=== PATIENT | male | born 2000 | race Caucasian/White ===

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

== ENCOUNTER 2022-09-03 15:59 | Emergency (ER) | payer BC, SELFPAY ==
[~2022-09-03] VITALS: Ht 177.8 cm; Wt 66.8 kg
[~2022-09-03 15:59] MED LIST changes: +ALEV220T22 PO
[2022-09-03] MEDS ORDERED: LIDOCAINE 1% MDV 20ML VIAL SC ONE (16:55)
[2022-09-03] MEDS ORDERED: BOOSTRIX/ADACEL VACCINE (DIPHTH/PERTUSS/ACELL/TETANUS) 0.5ML SYR IM.IMMUN ONE (16:55)
[2022-09-03] MEDS ORDERED: CEPH500C PO (17:54)
[2022-09-03 17:57] VITALS: BP 131/73
[2022-09-07] MEDS ORDERED: IBUP-1114 PO (11:54)
== END 2022-09-03 18:11 | disposition home or self-care (01) ==
LOC: M ED 15:59
DX: S61.216A Laceration without foreign body of right little finger without damage to nail, initial encounter (principal); S66.106A Unspecified injury of flexor muscle, fascia and tendon of right little finger at wrist and hand level, initial encounter; W26.0XXA Contact with knife, initial encounter; F17.200 Nicotine dependence, unspecified, uncomplicated; Y92.9 Unspecified place or not applicable; Y93.9 Activity, unspecified; Y99.9 Unspecified external cause status

== ENCOUNTER → 2022-09-06 | Outpatient (CLI) | payer SELFPAY ==
[~2022-09-06] MED LIST changes: +CEPH500C PO; +IBUP-1114 PO
== END ==
LOC: M SOG 13:29
PROVIDERS: ATTEND Orthopaedic Surgery Hand Surgery
DX: M79.644 Pain in right finger(s) (principal)

== ENCOUNTER 2022-09-09 06:59 | Day surgery (SDC) | payer BC, SELFPAY ==
[~2022-09-09] VITALS: Ht 180.3 cm; Wt 69.8 kg
[2022-09-09] MEDS ORDERED: SEVOFLURANE INHAL SOLN 250 ML BTL As Ordered ONE (07:04)
[2022-09-09] MEDS ORDERED: propofoL 200 MG/20 ML VIAL As Ordered ONE ×2 (07:09→09:21)
[2022-09-09] MEDS ORDERED: LIDOCAINE 2% 100MG/5ML SDV (FOR ANES.) As Ordered ONE (07:10)
[2022-09-09] MEDS ORDERED: ONDANSETRON 4MG 2ML VIAL As Ordered ONE (07:11)
[2022-09-09] MEDS ORDERED: MIDAZOLAM INJ 2MG/2ML VIAL (J2250 PER 1MG) As Ordered ONE (07:11)
[2022-09-09] MEDS ORDERED: fentaNYL 250 MCG/5 ML INJECTION As Ordered ONE (07:11)
[2022-09-09] MEDS ORDERED: dexameTHASONE 4 MG/ML 1ML VIAL (J1100 PER 1MG) As Ordered ONE (07:11)
[2022-09-09] MEDS ORDERED: BUPIVACAINE HCL 0.25% 10ML VIAL As Ordered ONE (07:25)
[2022-09-09] MEDS ORDERED: LIDOCAINE 1% MDV 20ML VIAL As Ordered ONE (07:25)
[2022-09-09] MEDS ORDERED: PERC5TAB12 PO (07:29)
[2022-09-09] MEDS ORDERED: LR 1,000 ML IV SCH ×2 (07:30→09:30)
[2022-09-09] MEDS ORDERED: ceFAZolin SOD 2 GM in IV 1 EA IV ONE (07:30)
[2022-09-09] MEDS ORDERED: BACITRACIN OINTMENT 30GM TUBE As Ordered ONE (08:28)
[2022-09-09] MEDS ORDERED: KETOROLAC 60MG 2ML VIAL As Ordered ONE (09:18)
[2022-09-09] MEDS ORDERED: HYDROMORPHONE HCL 0.5 MG/ 0.5 ML SYRINGE (J1170 PER 1) IV PRN (09:30)
[2022-09-09] MEDS ORDERED: fentaNYL 100 MCG/2 ML INJECTION IV PRN (09:30)
[2022-09-09] MEDS ORDERED: oxyCODONE 5MG TAB PO PRN (09:30)
[2022-09-09] MEDS ORDERED: ONDANSETRON 4MG 2ML VIAL IV PRN (09:30)
[2022-09-09 10:27] VITALS: BP 140/70
[2022-09-09] MEDS ORDERED: ACETAMINOPHEN 1000MG 100ML IV BTL (OFIRMEV) (J0131 PER 10MG) As Ordered ONE (13:27)
== END 2022-09-09 10:33 | disposition home or self-care (01) ==
LOC: M SDC 06:59
PROVIDERS: ATTEND Orthopaedic Surgery Hand Surgery
DX: S66.126A Laceration of flexor muscle, fascia and tendon of right little finger at wrist and hand level, initial encounter (principal); W26.0XXA Contact with knife, initial encounter; Y93.89 Activity, other specified; Y92.9 Unspecified place or not applicable; F17.210 Nicotine dependence, cigarettes, uncomplicated; F10.10 Alcohol abuse, uncomplicated; F32.A Depression, unspecified; F12.10 Cannabis abuse, uncomplicated; Z79.899 Other long term (current) drug therapy
CPT/HCPCS: 26356; 87428; J0131; J0690; J1100; J1885; J2250; J2405; J3010

== ENCOUNTER 2022-09-25 19:33 | Inpatient (IN) | payer SELFPAY ==
[~2022-09-25] VITALS: Ht 177.8 cm; Wt 66.8 kg
[~2022-09-25 19:33] MED LIST changes: +PERC5TAB12 PO
[2022-09-25 20:38] LABS: HEMATOCRIT 46.4 % (42.0-52.0); HEMOGLOBIN 15.9 g/dl (13.5-17.5); MEAN CORPUSCULAR HEMOGLOBIN 31.9 pg (27.0-33.0); MEAN CORPUSCULAR HGB CONC 34.3 g/dl (32.0-36.5); PLATELET COUNT, AUTOMATED 282 10^3/uL (150-450); RED BLOOD COUNT 4.99 10^6/uL (4.30-6.10); WHITE BLOOD COUNT 11.7 10^3/uL (4.0-10.0)
[2022-09-25 21:03] LABS: AMPHETAMINES LEVEL URINE NEGATIVE (NEGATIVE); BARBITURATES URINE NEGATIVE (NEGATIVE); BENZODIAZEPINES URINE NEGATIVE (NEGATIVE); CANNABINOIDS URINE POSITIVE (NEGATIVE); COCAINE METABOLITE URINE NEGATIVE (NEGATIVE); METHADONE URINE NEGATIVE (NEGATIVE); OPIATES URINE NEGATIVE (NEGATIVE); PHENCYCLIDINE URINE NEGATIVE (NEGATIVE)
[2022-09-25 21:11] LABS: RSV AMPLIFICATION NEGATIVE (NEGATIVE)
[2022-09-25 21:30] LABS: ACETAMINOPHEN LEVEL < 2.0 UG/ML (10.0-20.0); ALBUMIN 4.7 G/DL (3.2-5.2); ALT/SGPT 23 U/L (7.0-40); BILIRUBIN,DIRECT < 0.1 MG/DL (<0.4); BILIRUBIN,TOTAL 0.2 MG/DL (0.3-1.2); BLOOD UREA NITROGEN 10 MG/DL (9-23); CALCIUM LEVEL 8.6 MG/DL (8.5-10.1); CARBON DIOXIDE LEVEL 25 MMOL/L (20-31); CHLORIDE LEVEL 109 MMOL/L (98-107); CREATININE FOR GFR 0.61 MG/DL (0.70-1.30); ETHYL ALCOHOL (ETHANOL) 0.186 % (0.000-0.010); GLUCOSE, FASTING 94 MG/DL (60-100); POTASSIUM SERUM 4.2 MMOL/L (3.5-5.1); SODIUM LEVEL 145 MMOL/L (136-145); THYROID STIMULATING HORMONE 1.469 uIU/ML (0.48-4.17); TOTAL PROTEIN 7.7 G/DL (5.7-8.2)
[2022-09-25 21:36] LABS: SALICYLATE LEVEL < 3.0 MG/DL (<30)
[2022-09-26] MEDS ORDERED: NICOTINE 21MG/24HR 1 EA TRANSDERMAL TD ONE ×2 (02:55→22:15)
[2022-09-26] MEDS ORDERED: ACETAMINOPHEN 325 MG TAB PO ONE (02:55)
[2022-09-26] MEDS ORDERED: FOLI1TAB11 PO (15:54)
[2022-09-26] MEDS ORDERED: PATIENT COMMENT (15:54)
[2022-09-26] MEDS ORDERED: THIA100T7 PO (15:54)
[2022-09-26] MEDS ORDERED: VITMTA PO (15:54)
[2022-09-26] MEDS ORDERED: NICO1DIS11 TD (15:54)
[2022-09-26] MEDS ORDERED: TRAZ1TAB10 PO (15:54)
[2022-09-26] MEDS ORDERED: ACAM0.05 PO (15:54)
[2022-09-26] MEDS ORDERED: PANT-23 PO (15:54)
[2022-09-26] MEDS ORDERED: HOME MED LIST COMPLETE! XX SCH (15:55)
[2022-09-26] MEDS ORDERED: traZODone 25MG PER 1/2 TABLET PO PRN (16:35)
[2022-09-27] MEDS ORDERED: ACETAMINOPHEN TAB 650MG DOSE (2X325MG) PO ONE (08:30)
[2022-09-27] MEDS ORDERED: NICOTINE 21MG/24HR 1 EA TRANSDERMAL TD SCH (09:00)
[2022-09-27] MEDS ORDERED: MULTIVITAMINS/MINERALS THERAP 1 TAB PO SCH (09:00)
[2022-09-27] MEDS ORDERED: THIAMINE 100 MG TAB PO SCH ×2 (09:00→21:00)
[2022-09-27] MEDS ORDERED: FOLIC ACID 1MG TAB PO SCH (09:00)
[2022-09-27] MEDS ORDERED: PANTOPRAZOLE 40MG TAB (PROTONIX) PO SCH (09:00)
[2022-09-27] MEDS ORDERED: MAALOX 30 ML SUSP *UDC PO PRN (12:55)
[2022-09-27] MEDS ORDERED: IBUPROFEN 400MG TAB PO PRN (12:55)
[2022-09-27] MEDS ORDERED: MOM 30ML SUSPENSION UDC PO PRN (12:55)
[2022-09-27] MEDS ORDERED: IBUPROFEN 400MG TAB PO ONE (13:05)
[2022-09-27] MEDS: LORazepam 2 MG TAB PO PRN ×2 (15:29→20:45)
[2022-09-27] MEDS: ACAMPROSATE CALCIUM 333 MG TABLET (CAMPRAL) PO SCH ×2 (16:26→20:45)
[2022-09-27 17:26] VITALS: BP 136/75
[2022-09-27] MEDS: diphenhydrAMINE 25MG CAP PO PRN (18:01)
[2022-09-27 20:43] VITALS: BP 146/96
[2022-09-27] MEDS: traZODone 50 MG TAB PO PRN (21:10)
[2022-09-27 22:44] VITALS: BP 141/81
[2022-09-28] VITALS (8 sets, daily range): BP systolic 113–142; BP diastolic 57–80
[2022-09-28] MEDS: THIAMINE 100 MG TAB PO SCH (07:26)
[2022-09-28] MEDS: PANTOPRAZOLE 40MG TAB (PROTONIX) PO SCH (07:26)
[2022-09-28] MEDS: MULTIVITAMINS/MINERALS THERAP 1 TAB PO SCH (07:26)
[2022-09-28] MEDS: NICOTINE 21MG/24HR 1 EA TRANSDERMAL TD SCH (07:26)
[2022-09-28] MEDS: FOLIC ACID 1MG TAB PO SCH (07:26)
[2022-09-28] MEDS: ACAMPROSATE CALCIUM 333 MG TABLET (CAMPRAL) PO SCH ×3 (07:29→20:18)
[2022-09-28] MEDS ORDERED: ONDANSETRON 4MG TAB PO ONE (07:55)
[2022-09-28] MEDS ORDERED: MULTIVITAMINS/MINERALS THERAP 1 TAB PO SCH (09:00)
[2022-09-28] MEDS ORDERED: NICOTINE 21MG/24HR 1 EA TRANSDERMAL TD SCH (09:00)
[2022-09-28] MEDS ORDERED: FOLIC ACID 1MG TAB PO SCH (09:00)
[2022-09-28] MEDS ORDERED: LORazepam 2 MG TAB PO ONE (11:15)
[2022-09-28] MEDS: LIDOCAINE 5% (LIDODERM) PATCH TD SCH (11:30)
[2022-09-28] MEDS: DIVALPROEX 125 MG TAB PO SCH (20:19)
[2022-09-28] MEDS: traZODone 50 MG TAB PO PRN (21:09)
[2022-09-28] MEDS ORDERED: PROPRANOLOL 10 MG TAB PO ONE (22:15)
[2022-09-28] MEDS: MIRTAZAPINE 15 MG TAB PO SCH (22:26)
[2022-09-28] MEDS: LORazepam 2 MG TAB PO PRN (22:27)
[2022-09-29 06:50] VITALS: BP 121/58
[2022-09-29] MEDS: MULTIVITAMINS/MINERALS THERAP 1 TAB PO SCH (09:00)
[2022-09-29] MEDS: LIDOCAINE 5% (LIDODERM) PATCH TD SCH (09:00)
[2022-09-29] MEDS: FOLIC ACID 1MG TAB PO SCH (09:00)
[2022-09-29] MEDS: THIAMINE 100 MG TAB PO SCH (10:22)
[2022-09-29] MEDS: ACAMPROSATE CALCIUM 333 MG TABLET (CAMPRAL) PO SCH ×3 (10:22→20:26)
[2022-09-29] MEDS: PANTOPRAZOLE 40MG TAB (PROTONIX) PO SCH (10:22)
[2022-09-29] MEDS: NICOTINE 21MG/24HR 1 EA TRANSDERMAL TD SCH (10:23)
[2022-09-29] MEDS: OLANZapine ORAL DISINTEGRATING TAB 5MG PO PRN ×2 (12:10→22:35)
[2022-09-29 15:51] VITALS: BP 149/60
[2022-09-29] MEDS: MIRTAZAPINE 15 MG TAB PO SCH (20:27)
[2022-09-29] MEDS: DIVALPROEX 125 MG TAB PO SCH (20:27)
[2022-09-29 23:58] VITALS: BP 122/75
[2022-09-30] MEDS: diphenhydrAMINE 25MG CAP PO PRN (00:01)
[2022-09-30 00:51] VITALS: BP 122/75
[2022-09-30] MEDS: NICOTINE 21MG/24HR 1 EA TRANSDERMAL TD SCH (06:47)
[2022-09-30 06:49] VITALS: BP 126/60
[2022-09-30] MEDS: ACAMPROSATE CALCIUM 333 MG TABLET (CAMPRAL) PO SCH (07:31)
[2022-09-30] MEDS: PANTOPRAZOLE 40MG TAB (PROTONIX) PO SCH (07:31)
[2022-09-30] MEDS: THIAMINE 100 MG TAB PO SCH (07:32)
[2022-09-30] MEDS: LIDOCAINE 5% (LIDODERM) PATCH TD SCH (07:32)
[2022-09-30] MEDS: MULTIVITAMINS/MINERALS THERAP 1 TAB PO SCH (07:33)
[2022-09-30] MEDS: FOLIC ACID 1MG TAB PO SCH (07:33)
[2022-09-30] MEDS ORDERED: DIVA250T67 PO (09:24)
[2022-09-30] MEDS ORDERED: PANT-23 PO (09:24)
[2022-09-30] MEDS ORDERED: ACAM0.05 PO (09:24)
[2022-09-30] MEDS ORDERED: THIA100T7 PO (09:24)
[2022-09-30] MEDS ORDERED: TRAZ1TAB10 PO (09:24)
[2022-09-30] MEDS ORDERED: NICO1DIS11 TD (09:24)
[2022-09-30] MEDS ORDERED: FOLI1TAB11 PO (09:24)
[2022-09-30] MEDS ORDERED: VITMTA PO (09:24)
== END 2022-09-30 12:38 | disposition home or self-care (01) | DRG 775 ==
LOC: M ED 19:33 → M ED INP 09-27 12:55 → M PSY 09-27 16:03
PROVIDERS: ADMIT Student in an Organized Health Care Education/Training Program; ATTEND Psychiatry & Neurology Psychiatry
DX: F10.221 Alcohol dependence with intoxication delirium (principal); F10.24 Alcohol dependence with alcohol-induced mood disorder; F31.81 Bipolar II disorder; F41.9 Anxiety disorder, unspecified; Z56.0 Unemployment, unspecified; R45.851 Suicidal ideations; Z91.51 Personal history of suicidal behavior; F17.210 Nicotine dependence, cigarettes, uncomplicated; Z20.822 Contact with and (suspected) exposure to COVID-19

== ENCOUNTER 2024-03-26 16:53 | Emergency (ER) | payer SELFPAY, OTHER, BC ==
[~2024-03-26] VITALS: Ht 180.3 cm; Wt 70.2 kg
[~2024-03-26 16:53] MED LIST changes: +ACAM0.05 PO; +DIVA250T67 PO; +FOLI1TAB11 PO; +NICO1DIS11 TD; +PANT-23 PO; +PATIENT COMMENT; +THIA100T7 PO; +TRAZ1TAB10 PO; +VITMTA PO
[2024-03-26] MEDS: NS 1,000 ML IV ONE (17:59)
[2024-03-26 18:02] LABS: BASO # 0.1 10^3/uL (0.0-0.2); BASO % 0.9 % (0.0-1.0); EOS # 0.4 10^3/uL (0.0-0.5); EOS % 3.4 % (0.0-3.0); HEMATOCRIT 43.5 % (42.0-52.0); HEMOGLOBIN 15.4 g/dl (13.5-17.5); LYMPH # 2.5 10^3/uL (1.5-5.0); LYMPH % 24.7 % (24.0-44.0); MEAN CORPUSCULAR HGB CONC 35.4 g/dl (32.0-36.5); MEAN CORPUSCULAR VOLUME 90.4 fl (80.0-96.0); MONO # 0.7 10^3/uL (0.0-0.8); MONO % 6.6 % (2.0-8.0); NEUTROPHILS # 6.6 10^3/uL (1.5-8.5); NEUTROPHILS % 63.9 % (36.0-66.0); PLATELET COUNT, AUTOMATED 204 10^3/uL (150-450); RED BLOOD COUNT 4.81 10^6/uL (4.30-6.10); WHITE BLOOD COUNT 10.3 10^3/uL (4.0-10.0)
[2024-03-26 18:16] LABS: INR 1.06; PARTIAL THROMBOPLASTIN TIME 29.2 SECONDS (24.8-34.2); PROTHROMBIN TIME 13.5 SECONDS (12.5-14.5)
[2024-03-26 18:29] LABS: ETHYL ALCOHOL (ETHANOL) 0.005 % (0.000-0.010); LIPASE 39 U/L (12-53)
[2024-03-26 18:31] LABS: ALBUMIN 4.7 G/DL (3.2-5.2); ALKALINE PHOSPHATASE 108 U/L (46-116); ALT/SGPT 37 U/L (7.0-40); AST/SGOT 23 U/L (<34); BILIRUBIN,DIRECT 0.4 MG/DL (<0.4); BILIRUBIN,TOTAL 0.9 MG/DL (0.3-1.2); BLOOD UREA NITROGEN 12 MG/DL (9-23); CALCIUM LEVEL 9.9 MG/DL (8.5-10.1); CARBON DIOXIDE LEVEL 28 MMOL/L (20-31); CHLORIDE LEVEL 107 MMOL/L (98-107); CREATININE FOR GFR 0.86 MG/DL (0.70-1.30); GLOMERULAR FILTRATION RATE > 60.0 (>60); GLUCOSE, FASTING 82 MG/DL (60-100); POTASSIUM SERUM 3.7 MMOL/L (3.5-5.1); SALICYLATE LEVEL < 3.0 MG/DL (<30); SODIUM LEVEL 142 MMOL/L (136-145); TOTAL PROTEIN 7.5 G/DL (5.7-8.2)
[2024-03-26 18:32] LABS: HEPATITIS B SURFACE ANTIBODY POSITIVE (POSITIVE)
[2024-03-26] MEDS: PANTOPRAZOLE 40MG VIAL IV ONE (18:34)
[2024-03-26 18:44] LABS: HEPATITIS B SURFACE ANTIGEN NEGATIVE (NEGATIVE)
[2024-03-26] MEDS ORDERED: ISOVUE-370 76% 100ML VIAL As Ordered ONE (18:53)
[2024-03-26 18:57] LABS: HIV 1&2 SCREEN NEGATIVE (NEGATIVE)
[2024-03-26 19:06] LABS: HEPATITIS C VIRUS ABY INDEX < 0.02 INDEX (<0.8)
[2024-03-26 20:00] VITALS: BP 129/70; TEMP 98.7; O2SAT 97
== END 2024-03-26 20:00 | disposition home or self-care (01) ==
LOC: M ED 16:53
DX: R10.9 Unspecified abdominal pain (principal); F10.10 Alcohol abuse, uncomplicated; Z79.899 Other long term (current) drug therapy
CPT/HCPCS: 74177; 80048; 80076; 80143; 82077; 83690; 85025; 85610; 85730; 86706; 86803; 87340; 87389; 96361; 96374; 99284; C9113; Q9967

== ENCOUNTER 2024-10-21 18:46 | Emergency (ER) | payer BC, OTHER, SELFPAY ==
[~2024-10-21] VITALS: Ht 180.3 cm; Wt 64.0 kg
[2024-10-21 18:49] VITALS: BP 140/82; TEMP 98.5; O2SAT 99
== END 2024-10-21 19:10 | disposition left against medical advice (07) ==
LOC: M ED 18:46
DX: Z53.21 Procedure and treatment not carried out due to patient leaving prior to being seen by health care provider (principal)

== ENCOUNTER 2025-07-04 12:40 | Emergency (ER) | payer MEDICAID, SELFPAY ==
[~2025-07-04] VITALS: Ht 177.8 cm; Wt 69.0 kg
[2025-07-04] MEDS: FAMOTIDINE 20 MG/2 ML VIAL IVP ONE (14:35)
[2025-07-04] MEDS: KETOROLAC 30 MG/ML 1 ML VIAL IV ONE (14:35)
[2025-07-04] MEDS: diphenhydrAMINE 50 MG/ML VIAL IV ONE (14:35)
[2025-07-04 15:14] LABS: BASO # 0.0 10^3/uL (0.0-0.2); BASO % 0.2 % (0.0-1.0); EOS # 0.3 10^3/uL (0.0-0.5); EOS % 2.2 % (0.0-3.0); LYMPH # 1.9 10^3/uL (1.5-5.0); LYMPH % 15.9 % (24.0-44.0); MONO # 1.0 10^3/uL (0.0-0.8); MONO % 8.4 % (2.0-8.0); NEUTROPHILS # 8.7 10^3/uL (1.5-8.5); NEUTROPHILS % 72.3 % (36.0-66.0); PLATELET COUNT, AUTOMATED 174 10^3/uL (150-450)
[2025-07-04] MEDS ORDERED: HOME MED LIST COMPLETE! XX SCH (15:15)
[2025-07-04 15:21] LABS: ERYTHROCYTE SEDIMENTATION RATE 3 mm/hr (0-15)
[2025-07-04 15:40] LABS: C REACTIVE PROTEIN QUANTITATIV 1.30 MG/DL (<1.0)
[2025-07-04 15:41] LABS: CALCIUM LEVEL 9.3 MG/DL (8.5-10.1); CARBON DIOXIDE LEVEL 32 MMOL/L (20-31); CHLORIDE LEVEL 103 MMOL/L (98-107); CREATININE FOR GFR 0.84 MG/DL (0.70-1.30); GLOMERULAR FILTRATION RATE > 90.0 (>60); POTASSIUM SERUM 4.1 MMOL/L (3.5-5.1); SODIUM LEVEL 142 MMOL/L (136-145)
[2025-07-04] MEDS ORDERED: CETI-24 PO (16:15)
[2025-07-04] MEDS ORDERED: CEPH500C PO (16:15)
[2025-07-04] MEDS ORDERED: PRED20TA PO (16:15)
[2025-07-04 16:54] VITALS: BP 117/62; TEMP 98.2; O2SAT 98
[2025-07-04] MEDS: CEPHALEXIN 500 MG CAP PO ONE (17:03)
== END 2025-07-04 17:13 | disposition home or self-care (01) ==
LOC: M ED 12:40
DX: T63.441A Toxic effect of venom of bees, accidental (unintentional), initial encounter (principal); L03.113 Cellulitis of right upper limb; F17.200 Nicotine dependence, unspecified, uncomplicated; Z79.2 Long term (current) use of antibiotics; Z79.52 Long term (current) use of systemic steroids
CPT/HCPCS: 80048; 83605; 85025; 85652; 86140; 96374; 96375; 99284; J1200; J1308; J1885; J2919